=== PATIENT | male | born 1970 | race Caucasian/White ===

== ENCOUNTER 2022-01-06 20:49 | Emergency (ER) | payer BC, SELFPAY ==
[2022-01-06 20:57] VITALS: BP 134/88; PULSE 75; RESP 16; TEMP 36.8; O2SAT 95
[2022-01-06 21:37] VITALS: RESP 16; O2SAT 95
--- OUTSIDE RECORDS SUMMARY | 2022-01-06 22:05 | XMS_ITS | Clinical Summary ---
:1970 Author Organization [facility] Address [address] [place] [address] Care Team Providers Name Role Phone Unavailable Primary Care Provider Unavailable Source Comments Patient records contain information from all sites at [facility]. For routine questions regarding patient records, call [phone] during business hours, M-F 8:00 AM - 5:00 PM Central Time. Record requests for emergency care only can be directed to [phone] at any time.[facility] Social History Tobacco Use Types Packs/Day Years Used Date Smoking Tobacco: Never Assessed Sex Assigned at Date Recorded Not on file Plan of Treatment Health Maintenance Due Date Last Done Comments CT Colonography 1972 Cologuard 1972 Colonoscopy 1972 Colorectal Cancer Screening 1972 FIT 1972 Fasting Glucose for 1972 Diabetes Screening HIV Screening 1972 Hepatitis B Vaccines (1 of 1972 3 - 3-dose series) Hepatitis C Screening 1972 Lipid (Cholesterol) 1972 Screening COVID-19 Vaccine (#1) 1972 Depression Screening 02/18/2021 (Annual PHQ-2) Influenza Vaccine (#1) 2021 DTaP,Tdap,and Td Vaccines 06/13/2031 06/12/2021, 12/15/2010 , (5 - Td or Tdap) 07/04/1977, Additional history exists Pneumococcal vaccine (0-64 Aged Out No lo nger eligible years) based on patient 's age to complete this topic Insurance Payer Benefit Plan / Subscriber ID Effective Dates Phone Addre ss Type Group [place] [id number] 2021-Presen [phone] [address] PPO [facility] [address] [place] [address]
--- OUTSIDE RECORDS SUMMARY | 2022-01-06 22:05 | XMS_ITS | Encounter Summary ---
:1970 Author Organization [facility] Address [address] [place] [address] Care Team Providers Name Role Phone Unavailable Primary Care Provider Unavailable Reason for Visit Reason Comments COVID Inquiry Encounter Details Date Type Department Care Team Description 03/08/2021 Clinical Communication Central Appointment [facility] in [address] [id number] Social History Tobacco Use Types Packs/Day Years Used Date Smoking Tobacco: Never Assessed Sex Assigned at Date Recorded Not on file documented as of this encounter Miscellaneous Notes Telephone Encounter - Catrachita Rhoades R.N. - 03/08/2021 12:45 PM [facility] COVID-19 Nurse Line Screening ASSESSMENT Initial Screening Pathway Select appropriate pathway: : Adult In the last 48 hours, have you had a fever* OR symptoms that are unrelated to a preexisting illness?: No symptoms noted (Continue Screening) COVID Asymptomatic Screening Have you had close contact* with a person who has a LABORATORY CONFIRMED case of COVID-19 in the past 14 days?: Yes- quarantine required, provide instructions (Continue Screening) Have you tested positive for COVID-19 in the last 90 days?: No, asymptomatic COVID testing indicated(End Screening) Testing Recommendation Endpoint Is testing recommended? : Recommended to test Further Triage Needs Any further triage needs? : No further concerns noted. PLAN Endpoint recommendation: Asymptomatic testing indicated, advised to be swabbed for COVID-19 Only , sent to [facility] located at [address] [place] [address] ([facility]). An appointment is required for testing, please call [phone] Saturday-Saturday 7am to 6pm and Saturday & Saturday 9am to 4pm to schedule an appointment. Testing hours are 8am - 4:30pm daily. You can also schedule via your Patient Online Services account., Please avoid using public transportation per CDC recommendation. If you do not have personal transportation please self- quarantine until a personal transportation option is available. Standard Care Points -Get a COVID -19 vaccine as soon as you can if not fully vaccinated. -Wash hands frequently with soap and water, use hand resistor tester if soap and water aren't available. -Wear a mask over your nose and mouth to help protect yourself and others if not fully vaccinated and having no symptoms -Stay 6 feet between yourself and others who don't live with you. -Avoid crowds and poorly ventilated indoor spaces. -Seek emergent care if any of the following occur Trouble breathing Bluish lips or face Persistent pain or pressure in the chest New confusion or inability to rouse. -Notify your regular care provider of any new or worsening symptoms. Exposure Carepoints: If you are not fully vaccinated, quarantine for 14 days from your last known exposure to someone with a laboratory confirmed case of COVID-19 regardless of a negative test result unless otherwise directed. Education: Patient/caregiver able to teach back Patient agreeable to plan of care: Yes The following references were used: [facility] novel coronavirus (COVID- 19) resources CDC web site https://www.cdc.gov/coronavirus/2019-ncov/your-health/index.html Nursing judgement Telephone Encounter - Navarro Akins - 03/08/2021 12:39 PM CST What is the purpose of the call?: Requesting Testing Only Request Testing In the past 14 days are any of the following symptoms new to you and not related to an existing health condition?: No symptoms noted In the past 14 days have you had close contact* with a person who has a LABORATORY CONFIRMED case ofCOVID-19?: Yes exposure noted. [place] patient, instruct to quarantine, testing indicated (End Screening) Plan: Endpoint recommendation: Transferred to Nursing/COVID Line/Care Team *Reminder if sending patient for testing in [facility] or [facility], route encounter to the correct testing pool. documented in this encounter Plan of Treatment Not on filedocumented as of this encounter Visit Diagnoses Not on filedocumented in this encounter
--- OUTSIDE RECORDS SUMMARY | 2022-01-06 22:05 | XMS_ITS | Clinical Summary ---
:1970 Author Organization [facility] [place] [address] Care Team Providers Name Role Phone Cl Beasley MD Primary Care Provider [phone] Allergies No known active allergies Medications Medication Sig Dispensed Refills Start Date End Date Status escitalopram oxalate Take 1 tablet by 90 tablet 3 11/01/2017 Active (LEXAPRO) 10 mg mouth every tabletIndications: morning. Moderate single current episode of major depressive disorder (HC) ibuprofen (ADVIL; Take 1 tablet by 180 tablet 12 11/01/2017 Active MOTRIN) 600 mg mouth 3 times tabletIndications: daily with meals. Acute pain of left Maximum of 3200 knee mg in 24 hours. oxyCODONE (ROXICODONE) Take 1-2 tablets 15 tablet 0 12/14/2018 Active 5 mg immediate release by mouth every 6 tabletIndications: hours if needed Gingival abscess for Pain Active Problems Problem Noted Date Moderate single current episode of major depressive di sorder 11/25/2016 Tobacco abuse 12/17/2010 Immunizations Name Administration Dates Next Due Tdap 12/15/2010 Family History Medical History Relation Name Comments Diabetes Brother obesity Cancer-colon Mother Diabetes Mother Heart Disease Mother ND x 3 Hypertension Mother Stroke Mother Diabetes Sister obesity Relation Name Status Comments Brother Father Alive Mother Alive Sister Social History Tobacco Use Types Packs/Day Years Used Date Current Every Day Smoker Cigarettes 0.5 Smokeless Tobacco: Never Used Tobacco Cessation: Ready to Quit: Yes; C ounseling Given: Yes Alcohol Use Standard Drinks/Week Comments No 0 (1 standard drink = 0.6 oz pure alcoho l) Sex Assigned at Date Recorded Not on file Obstetrics History Last Filed Vital Signs Vital Sign Reading Time Taken Comments Blood Pressure 166/112 12/14/2018 2:09 PM CDT Pulse 85 12/14/2018 2:09 PM CDT Temperature 36.6 ??C (97.8 ??F) 12/14/2018 2:09 PM CDT Respiratory Rate 18 12/14/2018 2:09 PM CDT Oxygen Saturation 98% 12/14/2018 2:09 PM CDT Inhaled Oxygen Concentration - - Weight 118.8 kg (262 lb) 12/14/2018 2:09 PM CDT Height 201.9 cm (6' 7.5) 11/01/2017 3:15 PM CDT Body Mass Index 29.15 11/01/2017 3:15 PM CDT Plan of Treatment Health Maintenance Due Date Last Done Comments COVID-19 vaccine series (#1) 1972 HIV for age 15-65 06/23/1987 Hepatitis C screening for age 0506/22/1990 18-79 Colonoscopy through age 75 2017 Lipids for age 45-75 2017 BMI (ht and wt on same day) for 11/01/2018 11/01/2017, 11/20, age 18+ 11/15/2016, Additional history exists Depression screening for age 12+ 11/01/2018 11/01/2017, , 11/15/2016, Additional history exists Tetanus booster 12/15/2020 12/15/2010 Influenza for age 9-49 10/19/2021 Tdap Completed 12/15/2010 Results Not on filefrom Last 3 Months Insurance Payer Benefit Plan / Subscriber ID Effective Dates Phone Addre ss Type Group BLUE CROSS BLUE CROSS OF [id number] 2010-Present [address] [address] [place] [address] Care Teams Field Engineer Relationship Specialty Start Date End Date Cl Beasley MD PCP - General 07/08/061999 [place] [address]
--- OUTSIDE RECORDS SUMMARY | 2022-01-06 22:05 | XMS_ITS | Encounter Summary ---
:1970 Author Organization [facility] Address [address] [place] [address] Care Team Providers Name Role Phone Unavailable Primary Care Provider Unavailable Encounter Details Date Type Department Care Team Description 03/08/2021 Admin Visit Department of Family Medicine, [address] [address] [facility] [phone] Social History Tobacco Use Types Packs/Day Years Used Date Smoking Tobacco: Never Assessed Sex Assigned at Date Recorded Not on file documented as of this encounter Plan of Treatment Not on filedocumented as of this encounter Visit Diagnoses Not on filedocumented in this encounter Additional Health Concerns Infection Onset Date Last Indicated Resolved Time COVID19 Pending 03/08/2021 03/08/2021 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
--- NOTE | 2022-01-07 09:09 | ED.GENADULT ---
HPI - General Adult General Chief complaint: Unspecified Complaint, Adult Stated complaint: Left upper mouth swelling Time Seen by Provider: 01/06/22 21:38 History of Present Illness HPI narrative: 51 yo man here with so with c/o purulent drainage from left upper tooth and increasing swelling over his left face over the last 24 hours. lots of pain. Vision is not affected. fatigued. poor sleep. ibuprofen and aleeve no help. Has felt chilled. no measured fever. managed to get an appointment at the end of the month with his dentist. no known trauma. does smoke. Related Data Home Medications Medication Instructions Recorded Confirmed penicillin V potassium 500 mg 500 mg PO TID 01/08/22 01/08/22 tablet Previous Rx's Medication Instructions Recorded naproxen 500 mg tablet 500 mg PO BID #180 tabs 11/20/21 escitalopram oxalate 20 mg tablet 20 mg PO DAILY #30 tabs 01/08/22 oxycodone 5 mg tablet 5 mg PO Q8H PRN pain #20 tabs 01/08/22 zolpidem 10 mg tablet 10 mg PO QHS PRN sleep #30 tabs 01/08/22 Allergies Allergy/AdvReac Type Severity Reaction Status Date / Time acetaminophen Allergy Intermediate Nausea Verified 01/08/22 14:19 hydrocodone Allergy Intermediate Nausea Verified 01/08/22 14:20 Review of Systems Status of ROS: Reports: 6 or more systems reviewed and unremarkable except as noted in History and below [facility] Medical History (Updated 01/08/22 @ 14:47 by Cl Beasley MD) WINDY (generalized anxiety disorder) WINDY (generalized anxiety disorder) GERD (gastroesophageal reflux disease) Insomnia Social History Narrative: 1 daughter Smoker Smoking Status: Current every day smoker What tobacco products do you use: cigarettes Non-prescribed substance use: denies use Little interest or pleasure in doing things: several days Feeling down, depressed, or hopeless: several days Exam Narrative: Exam Narrative: tired and clearly uncomfortable. seems to have difficulty with decision making due to this combination. large man. breathing easily, no stridor. cardiovascular with rrr. significant swelling and mild erythema over majority of mid and upper left face. tender. not so much induration. eomi full and nt. neck supple without LA oropharynx with various eroded dentition. the one in question is at the upper anterior maxillary jaw --appears to involved tooth #12? adjacent teeth absent. mildy puffy gums and subtle pointing on buccal surface gums. draining very slightly from gingival surface. nowhere is there a discrete area of fluctuance. Const: Vital Signs, click to edit/add: Vital Signs - 24 hr 01/06/22 20:57 01/06/22 21:37 Temperature 98.2 F Pulse Rate [Right Pulse Oximeter] 75 Respiratory Rate 16 Respiratory Rate [ Left Teeth] 16 Blood Pressure [Ri ght Upper Arm] 134/88 Pulse Oximetry 95 Oxygen Delivery Me thod Room Air Course Vital Signs Vital signs: Initial Vital Signs Temperature 98.2 F 01/06/22 20:57 Temperature Source Temporal Artery Scan 01/06/22 20:57 Pulse Rate 75 01/06/22 20:57 Respiratory Rate 16 01/06/22 20:57 Blood Pressure 134/88 01/06/22 20:57 Blood Pressure Mean 103 01/06/22 20:57 Blood Pressure Position Sitting 01/06/22 20:57 Pulse Oximetry 95 01/06/22 20:57 Oxygen Delivery Method 01/06/22 20:57 Vital Signs Temperature 98.2 F 01/06/22 20:57 Pulse Rate 75 01/06/22 20:57 Respiratory Rate 16 01/06/22 20:57 Blood Pressure 134/88 01/06/22 20:57 Pulse Oximetry 95 01/06/22 20:57 Oxygen Delivery Method 01/06/22 20:57 Temperature 98.2 F 01/06/22 20:57 Pulse Rate 75 01/06/22 20:57 Respiratory Rate 16 01/06/22 21:37 Blood Pressure 134/88 01/06/22 20:57 Pulse Oximetry 95 01/06/22 20:57 Oxygen Delivery Method 01/06/22 20:57 Medical Decision Making MDM Narrative Medical decision making narrative: i don't appreciate cellulitis here or an abscess to drain; needs tooth pulled to expose. discussed options for care. interested in more immediate potential of pain relief. Injected with Marcaine which nearly fully resolved pain. Initially superior alveolar block and then a buccal block. Discharge Plan Discharge Clinical Impression: Dental decay, Pain, dental, Tooth abscess Patient Disposition: Home w/ Parent or Adult Condition: Improved Additional Instructions: Sorry you are feeling like this. Hopefully you get a little relief here shortly. Please make sure to make that appointment with your dentist after Thanksgiving. Return for persistent fever, worsening swelling tension redness heat, marked increase in pain. I would expect maybe symptoms to worsen a little bit over the next 12-24 hours as antibiotics begin to take hold. Can still take ibuprofen or naproxen combined with the medications prescribed today. Remember that the maximum dose for acetaminophen per dose is 1000 mg and in each tablet of Percocet there is 325 mg of acetaminophen. Prescriptions: No Action penicillin V potassium 500 mg tablet 500 mg PO TID zolpidem 10 mg tablet 10 mg PO QHS PRN (Reason: sleep) Qty: 30 0RF escitalopram oxalate 20 mg tablet 20 mg PO DAILY Qty: 30 5RF oxycodone 5 mg tablet 5 mg PO Q8H PRN (Reason: pain) Qty: 20 0RF naproxen 500 mg tablet 500 mg PO BID Qty: 180 0RF Stand Alone Forms: [employer] Info Instructions
== END 2022-01-06 22:09 | disposition home or self-care (01) ==
LOC: ED 22:04
PROVIDERS: Emergency Provider Family Medicine
DX: K02.9 Dental caries, unspecified (principal)
CPT/HCPCS: 64450; 99282; 99283; 99284

== ENCOUNTER 2022-10-21 15:12 | Observation (INO) | payer BC, SELFPAY ==
[2022-10-21] VITALS (29 sets, daily range): BP systolic 121–160; BP diastolic 75–105; PULSE 65–79; RESP 14–22; TEMP 36.6; O2SAT 90–96; BMI 29.3; BMI 29.9
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
[2022-10-21 15:40] LABS: Basophils Percent Auto 0.4 % (0.0-3.0); Eosinophils Percent Auto 1.1 % (0.0-7.0); Hematocrit 45.8 % (37.0-53.0); Hemoglobin* 15.3 gm/dL (13.5-17.5); Immature Granulocytes Pct Auto 0.4 %; Lymphocytes Percent Auto 22.4 % (20-44); Mean Corpuscular HGB Conc 33 gm/dL (32-36); Mean Corpuscular Hemoglobin 32 pg (26-34); Mean Corpuscular Volume 96 fL (80-100); Monocytes Percent Auto 8.2 % (0.0-11.0); Neutrophils Percent Auto 67.5 % (42.0-72.0); Platelet Count* 223 K/uL (140-440); RDW Coefficient of Variation % 12.5 % (11.5-15.5); Red Blood Count 4.78 m/uL (4.30-5.90); White Blood Count* 11.27 K/uL (4.50-11.00)
[2022-10-21 15:44] LABS: Slide Review Reflex No
[2022-10-21 15:46] LABS: Albumin* 4.4 g/dL (3.3-5.0); Chloride* 106 mmol/L (96-114); Sodium* 139 mmol/L (135-149)
[2022-10-21 15:47] LABS: Potassium* 3.9 mmol/L (3.6-5.1)
[2022-10-21 15:49] LABS: Alkaline Phosphatase* 72 U/L (40-150); Anion Gap 8 mEq/L (7-15); Aspartate Amino Transferase* 41 U/L (12-35); Bilirubin Direct* 0.2 mg/dL (0.0-0.5); Bilirubin Total* 0.6 mg/dL (0.1-1.5); Blood Urea Nitrogen* 18 mg/dL (7-30); Carbon Dioxide* 25 mmol/L (20-32); Creatinine* 0.8 mg/dL (0.5-1.5); Est. Creatinine Clearance* 146.41; Estimated Glomerular Filt Rate 108 ml/min; Total Protein* 7.4 g/dL (6.0-8.3)
[2022-10-21 15:50] LABS: Alanine Aminotransferase* 31 U/L (4-50); Calcium* 9.6 mg/dL (8.4-10.6); Glucose* 92 mg/dL (60-115)
--- NOTE | 2022-10-21 17:33 | ED.NURSE ---
up to br to void. is steady on feet. pain with movement.
[2022-10-21] MEDS: HYDROmorphone 0.5 mg/0.5 ml inj 1 MG IVP (17:58)
--- NOTE | 2022-10-21 18:24 | ED.NURSE ---
bed request sent and [facility] informed of admission.
--- NOTE | 2022-10-21 18:29 | ED.NURSE ---
is sitting on the bottom of the bed. denies pain after the dilaudid given . aware that he will be admitted for pain control and observation.
--- NOTE | 2022-10-21 18:35 | ED.NURSE ---
report was given to césar cody. will go to 258.
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
--- NOTE | 2022-10-21 22:28 | PC.NURSE ---
End of Shift: Patient pleasant and cooperative. Declined need for PRN pain medication. Tolerating regular diet with no nausea. O2 sats greater than 88% on room air.
[2022-10-21] MEDS: SODIUM CHLORIDE 0.9 % (FLUSH) 10 ML SYRINGE 5 ML IVF (23:47)
[2022-10-21] MEDS: CELECOXIB 200 MG CAPSULE PO (23:47)
[2022-10-22 03:20] VITALS: BP 132/81; PULSE 60; RESP 16; O2SAT 94
--- NOTE | 2022-10-22 05:52 | PC.NURSE ---
END OF SHIFT NOTE: PT CALM AND APPROPRIATE. A&Ox3. DENIES CP, SOB, N/V. C/O LEFT RIB PAIN FROM FRONT LATERAL CHEST TO MIDDLE BACK. PT RATES RIB PAIN 0/10 AT REST; 10/10 WITH MOVEMENT.?PT DECLINES PRN MEDICATION. AMBULATES INDEPENDENTLY WITHIN ROOM. VSS ON RA; AFEBRILE. CALL LIGHT WITHIN PT?S REACH.
[2022-10-22] MEDS: OMEPRAZOLE 20 MG CAPSULE DR PO (06:17)
[2022-10-22 07:00] VITALS: BP 145/95; PULSE 66; RESP 16; TEMP 36.4; O2SAT 91
[2022-10-22] MEDS: CELECOXIB 200 MG CAPSULE PO (09:07)
[2022-10-22] MEDS: SODIUM CHLORIDE 0.9 % (FLUSH) 10 ML SYRINGE 5 ML IVF (09:07)
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
== END 2022-10-22 11:20 | disposition home or self-care (01) ==
LOC: ED 15:59 → MEDSURG 18:55
PROVIDERS: Admitting Provider Family Medicine; Emergency Provider Family Medicine; PCP Family Medicine; Visit Provider Family Medicine
DX: S22.42XA Multiple fractures of ribs, left side, initial encounter for closed fracture (principal); V89.2XXA Person injured in unspecified motor-vehicle accident, traffic, initial encounter; K21.9 Gastro-esophageal reflux disease without esophagitis; Z72.0 Tobacco use; F41.1 Generalized anxiety disorder; Z90.89 Acquired absence of other organs
CPT/HCPCS: 36415; 70450; 71260; 72125; 72128; 72131; 80048; 80076; 85025; 93005; 94761; 96374; 99284; 99285; 99291; A9270; G0378; J1170; Q9967

== ENCOUNTER 2023-02-27 12:31 | Outpatient (CLI) | payer BC, SELFPAY ==
--- OUTSIDE RECORDS SUMMARY | 2023-02-27 12:33 | XMS_ITS | Clinical Summary ---
Author Name Unknown Organization [facility] Address [place], [place] [address] Care Team Providers Care School Janitor Name Role Phone Cl Beasley MD Primary Care Provider + Allergies No known active allergies Medications Medication Sig Dispensed Refills Start Date End Date Status escitalopram oxalate (LEXAPRO) 10 mg tabletIndications:Mo derate single current episode of major depressive disorder (HC) Take 1 tablet by mouth every morning. 90 tablet 3 11/01/2017 Active ibuprofen (ADVIL; MOTRIN) 600 mg tabletIndications:Ac michele pain of left knee Take 1 tablet by mouth 3 times daily with meals. Maximum of 3200 mg in 24 hours. 180 tablet 12 11/01/2017 Active oxyCODONE (ROXICODONE) 5 mg immediate release tabletIndications:Gi ngival abscess Take 1-2 tablets by mouth every 6 hours if needed for Pain 15 tablet 0 12/14/2018 Active Active Problems Problem Noted Date Diagnosed Date Moderate single current epis ode of major depressive disorder 11/25/2016 Tobacco abuse 12/17/2010 Immunizations Name Administration Dates Next Due Tdap 12/15/2010 Family History Medical History Relation Name Comments Diabetes Brother obesity Cancer-colon Mother Diabetes Mother Heart Disease Mother [place] x 3 Hypertension Mother Stroke Mother Diabetes Sister obesity Relation Name Status Comments Brother Father Alive Mother Alive Sister Social History Tobacco Use Types Packs/Day Years Used Date Smoking Tobacco: Every Day Cigarettes Smokeless Tobacco: Never Tobacco Cessation:Ready to Q uit: Yes; Counseling Given: Yes Alcohol Use Standard Drinks/Week Comments No 0 (1 standard drink = 0.6 oz pur e alcohol) PHQ-2 Answer Date Recorded PHQ-2 Score 6 04/19/2018 Sex and Gender Information Value Date Recorded Sex Assigned at Not on file Gender Identity Not on file Sexual Orientation Not on file Obstetrics History Last Filed Vital Signs Vital Sign Reading Time Taken Comments Blood Pressure 166/112 12/14/2018 2:09 PM CDT Pulse 85 12/14/2018 2:09 PM CDT Temperature 36.6 ??C (97.8 ??F) 12/14/2018 2:09 PM CD T Respiratory Rate 18 12/14/2018 2:09 PM CDT [...] 15-65 06/23/1987 Hepatitis C screening for age 18-79 1990 Colonoscopy through age 75 2017 Lipids for age 45-75 2017 BMI (ht and wt on same day) for age 18+ 11/01/2018 11/01/2017, 12/17/2016, 11/15/2016, Additional history exists Depression screening for age 12+ 11/01/2018 11/01/2017, 12/17/2016, 11/15/2016, Additional history exists Tetanus booster 12/15/2020 12/15/2010 Zoster (shingles) series for age 50+ (1 of 2) 2022 Influenza for age 50-64 10/19/2022 Tdap Completed 12/15/2010 Pneumococcal series for age 6-64 Aged Out No longer eligible based on patient's age to complete this topic Care Teams School Janitor Relationship Specialty Start Date End Date Cl Beasley MD [address] [place] [address] [facility] - General 07/08/06
--- OUTSIDE RECORDS SUMMARY | 2023-02-27 12:33 | XMS_ITS ---
Author Name Unknown Organization [facility] Address [address] [place] [address] Care Team Providers Care Pond Sawyer Name Role Phone Unavailable Unavailable Unavailable Surgery Details Not on file Complications Check Surgery Details section. Procedure Estimated Blood Loss Check Surgery Details section. Procedure Findings Check Surgery Details section. Procedure Specimens Taken Check Surgery Details section.
--- OUTSIDE RECORDS SUMMARY | 2023-02-27 12:33 | XMS_ITS | Clinical Summary ---
Author Name Unknown Organization [facility] Address [address] [place] [address] Care Team Providers Care Rn Gynecology Name Role Phone Unavailable Primary Care Provider Unavailabl e Source Comments Patient records contain information from all sites at [facility]. For routine questions regarding patient records, call [phone] during business hours, M-F 8:00 AM - 5:00 PM Central Time. Record requests for emergency care only can be directed to [phone] at any time.[facility] Social History Tobacco Use Types Packs/Day Years Used Date Smoking Tobacco: Never Assessed Nutrition Answer Date Recorded Nutrition: EVOO Fat Source Unknown 03/08 Nutrition: Servings of Fruits/Vegetables per Day Not on file 03/08/2021 Dental Answer Date Recorded Dental: Regular Dentist Unknown 03/08/19 22 Sex and Gender Information Value Date Recorded Sex Assigned at Not on file Gender Identity Not on file Sexual Orientation Not on file Plan of Treatment Health Maintenance Due Date Last Done Comments CT Colonography 1972 Cologuard 1972 Colonoscopy 1972 Colorectal Cancer Screening 1972 FIT 1972 Fasting Glucose for Diabetes Screening 1972 HIV Screening 1972 Hepatitis B Vaccines (1 of 3 - 3-dose series) 1972 Hepatitis C Screening 1972 Lipid (Cholesterol) Screening 1972 COVID-19 Vaccine (#1) 1972 Zoster Vaccines (1 of 2) 2022 Influenza Vaccine (#1) 2022 01/08/2022 Depression Screening (Annual PHQ-2) 02/18/2023 DTaP,Tdap,and Td Vaccines (5 - Td or Tdap) 06/13/2031 06/12/2021, 12/15/2010, 07/04/1977, Additional history exists Pneumococcal vaccine (0-64 years) Aged Out No longer eligible based on patient's age to complete this topic [address] [place] [id number]
--- OUTSIDE RECORDS SUMMARY | 2023-02-27 12:33 | XMS_ITS | Referral Summary ---
Author Name Unknown Organization [facility] Address [address] [place] [address] Care Team Providers Care Flight Mechanic Name Role Phone Unavailable Primary Care Provider Unavailabl e Source Comments Patient records contain information from all sites at [facility]. For routine questions regarding patient records, call [phone] during business hours, M-F 8:00 AM - 5:00 PM Central Time. Record requests for emergency care only can be directed to [phone] at any time.[facility] Social History Tobacco Use Types Packs/Day Years Used Date Smoking Tobacco: Never Assessed Nutrition Answer Date Recorded Nutrition: EVOO Fat Source Unknown 03/08 Nutrition: Servings of Fruits/Vegetables per Day Not on file 03/08/2021 Dental Answer Date Recorded Dental: Regular Dentist Unknown 03/08/19 Sex and Gender Information Value Date Recorded Sex Assigned at Not on file Gender Identity Not on file Sexual Orientation Not on file Plan of Treatment Not on file [address] [place] [id number]
== END 2023-02-27 12:32 | disposition home or self-care (01) ==
PROVIDERS: PCP Family Medicine; Visit Provider Family Medicine
DX: Z13.6 Encounter for screening for cardiovascular disorders (principal); Z12.5 Encounter for screening for malignant neoplasm of prostate
CPT/HCPCS: 80061; G0103

== ENCOUNTER 2023-10-22 13:28 | Outpatient (CLI) | payer BC, SELFPAY ==
--- OUTSIDE RECORDS SUMMARY | 2023-10-22 13:31 | XMS_ITS | Clinical Summary ---
Author Organization [facility] Address [place], [place] [address] Care Team Providers Care Design Editor Name Role Phone Cl Beasley MD Primary Care Provider + Allergies No known active allergies Medications Medication Sig Dispensed Refills Start Date End Date Status escitalopram oxalate (LEXAPRO) 10 mg tabletIndications:Mo derate single current episode of major depressive disorder (HC) Take 1 tablet by mouth every morning. 90 tablet 3 11/01/2017 Active ibuprofen (ADVIL; MOTRIN) 600 mg tabletIndications:Ac [place] pain of left knee Take 1 tablet by mouth 3 times daily with meals. Maximum of 3200 mg in 24 hours. 180 tablet 12 11/01/2017 Active oxyCODONE (ROXICODONE) 5 mg immediate release tabletIndications:Gi ngival abscess Take 1-2 tablets by mouth every 6 hours if needed for Pain 15 tablet 12/14/2018 Active Active Problems Problem Noted Date Diagnosed Date Moderate single current epis ode of major depressive disorder 11/25/2016 Tobacco abuse 12/17/2010 Immunizations Name Administration Dates Next Due Tdap 12/15/2010 Family History Medical History Relation Name Comments Diabetes Brother obesity Cancer-colon Mother Diabetes Mother Heart Disease Mother [place] x 3 Hypertension Mother Stroke Mother Diabetes [...] Health Maintenance Due Date Last Done Comments HIV for age 15-65 06/23/1987 Hepatitis C [...] for age 50+ (1 of 2) 2022 COVID-19 vaccine series (2022-24 season) 2023 Influenza for age 50-64 10/20/2023 Tdap Completed 12/15/2010 Pneumococcal series for age 6-64 Aged Out No longer eligible based on patient's age to complete this topic Care Teams Design Editor Relationship Specialty Start Date End Date Cl Beasley MD [address] [place] [address] [facility] - General 07/08/06
--- NOTE | 2023-10-22 13:45 | CRLHL7_ITS ---
For Patients: As a result of the Century Cures Act, medical imaging exams and procedure reports are released immediately into your electronic medical record. You may view this report before your referring provider. If you have questions, please contact your health care provider. CLINICAL INDICATION: Right knee pain. Osteoarthritis. COMPARISON STUDIES: Radiographs from 10/08/2023. TECHNICAL: Noncontrast MRI of the right knee. 1.5 milan MRI scanner. Axial, sagittal and coronal T1, PD, PD FS and T2 FS images. FINDINGS: MEDIAL COMPARTMENT: Medial Meniscus: Complex tearing of the posterior horn and posterior aspect of the body of the medial meniscus. Meniscal tearing is noted on coronal STIR images number 23 through 27 of series 5. There is associated moderate medial extrusion of the medial meniscal body which indicates loss of meniscal hoop stress. Articular Cartilage: Marginal osteophyte formation. There is high-grade medial femoral condyle and medial tibial plateau articular cartilage wear with small areas of subchondral bone marrow edema (grade 3 and 4 cartilage wear). LATERAL COMPARTMENT: Lateral Meniscus: Intact. Articular Cartilage: Subchondral bone marrow edema underlying the medial aspect lateral tibial plateau and likely indicates overlying grade 4 cartilage abnormality. Mild lateral femoral condyle articular cartilage wear (grade 1/2). PATELLOFEMORAL COMPARTMENT: Articular Cartilage: Full-thickness grade 4 cartilage abnormality involving the medial patellar facet and patellar apex with subchondral marrow changes. Moderate to high-grade chondromalacia within the trochlea (grade 2/3). LIGAMENTS: Anterior Cruciate Ligament: Intact. Posterior Cruciate Ligament: Intact. MEDIAL COLLATERAL LIGAMENT AND POSTEROMEDIAL CORNER COMPLEX: Medial Collateral Ligament: Chronic thickening of the proximal MCL. Medial Head of the Gastrocnemius and Semimembranosus Tendons: Normal. LATERAL COLLATERAL LIGAMENT COMPLEX AND POSTEROLATERAL CORNER COMPLEX: Fibular Collateral Ligament: Normal. Distal Biceps Femoris Tendon Complex: Normal. Iliotibial Band: Normal. Popliteus Tendon: Normal. Posterolateral Corner Capsule: Normal. EXTENSOR MECHANISM: Distal Quadriceps Tendon: Normal. Patellar Tendon: Normal. Medial Patellar Retinaculum and Medial Patellofemoral Ligament: Normal. Lateral Patellar Retinaculum: Normal. Normal patellar alignment. No patella aden. Normal trochlear depth. Normal lateral trochlear inclination. JOINT SPACE AND CAPSULE: Moderate joint effusion with mild synovitis. 5 millimeter ossified body adjacent to the anterior horn root attachment of the medial meniscus as noted on axial T1 image number 22 of series 4. BONES AND SOFT TISSUES: No acute fracture or avascular necrosis.No significant popliteal cyst.Anterior subcutaneous edema. IMPRESSION: 1. Medial meniscal tear, right knee. 2. Tricompartmental high-grade chondromalacia. This includes high-grade partial and full-thickness cartilage wear within the medial compartment with areas of subchondral bone marrow edema. 3. Moderate joint effusion with mild synovitis. 5 mm ossified body adjacent to the anterior horn root attachment of the medial meniscus. 4. No fracture or acute ligamentous abnormality. Dictated by Lawrence Augustine MD @ 10/23/2023 9:35:06 AM (Electronically Signed)
== END 2023-10-22 13:29 | disposition home or self-care (01) ==
LOC: MRI 13:29
PROVIDERS: PCP Family Medicine; Visit Provider Family Medicine
DX: M25.561 Pain in right knee (principal); S83.241A Other tear of medial meniscus, current injury, right knee, initial encounter; M94.261 Chondromalacia, right knee; M25.461 Effusion, right knee; M17.11 Unilateral primary osteoarthritis, right knee
CPT/HCPCS: 73721

== ENCOUNTER 2024-12-07 09:36 | Emergency (ER) | payer BC, SELFPAY ==
[2024-12-07 09:38] VITALS: BP 146/92; PULSE 88; RESP 18; TEMP 36.6; O2SAT 97; BMI 29.9
--- OUTSIDE RECORDS SUMMARY | 2024-12-07 09:38 | XMS_ITS | Clinical Summary ---
Author Organization [facility] Address [address] [place] [id number] Care Team Providers Care Capacity Analyst Name Role Phone Cl Beasley MD Primary Care Provider + Allergies No known active allergies Medications escitalopram oxalate (LEXAPRO) 10 mg tabletIndicatio ns:Moderate single current episode of major depressive disorder (HC) Take 1 tablet by mouth every morning. 90 tablet 3 11/01/2017 Active ibuprofen (ADVIL; MOTRIN) 600 mg tabletIndicatio ns:Acute pain of left knee Take 1 tablet by mouth 3 times daily with meals. Maximum of 3200 mg in 24 hours. 180 tablet 12 11/01/2017 Active oxyCODONE (ROXICODONE) 5 mg immediate release tabletIndicatio ns:Gingival abscess Take 1-2 tablets by mouth every 6 hours if needed for Pain 15 tablet 12/14/2018 Active Active Problems Problem Noted Date Diagnosed Date Moderate single current epis ode of major depressive disorder 11/25/2016 Tobacco abuse 12/17/2010 Immunizations Immunization Administration Dates Next Due Tdap 12/15/2010 Family History Medical History Relation Name Comments Diabetes Brother obesity Cancer-colon Mother Diabetes Mother Heart Disease Mother [place] x 3 Hypertension Mother Stroke Mother Diabetes [...] Recorded Sex Assigned at Not on file Legal Sex Male 5:23 AM [employer] Gender Identity Not on file Sexual Orientation Not on file Obstetrics History Last Filed Vital Signs Vital Sign Reading Time Taken Comments Blood Pressure 166/112 12/14/2018 2:09 PM CDT Pulse 85 12/14/2018 2:09 PM CDT Temperature 36.6 C (97.8 F) 12/14/2018 2:09 PM CDT Respiratory Rate 18 [...] age 15-65 06/23/1987 Hepatitis C screening for ag e 18-79 1990 Hepatitis B series for 19+ ( 1 of 3 - 19+ 3-dose series) 06/23/1991 Colonoscopy through age 75 2017 Lipids for age 45-75 2017 BMI (ht and wt on same day) for age 18+ 11/01/2018 11/01/2017, 12/17/2016, 11/15/2016, Additional history exists Depression screening for age 12+ 11/01/2018 11/01/2017, 12/17/2016, 11/15/2016, Additional history exists Tetanus booster 12/15/2020 12/15/2010 Pneumococcal series for age 50+ (1 of 1 - PCV) 2022 Zoster (shingles) series for age 50+ (1 of 2) 2022 COVID-19 vaccine series ( - 2023- season) 2024 Influenza Vaccine (#1) 2024 RSV vaccine for adults or (1 - 1-dose 75+ series) 06/23/[id number] [place] [id number] [employer] [place] Care Teams Capacity Analyst Relationship Specialty Start Date End Date Cl Beasley MD [address] [place] [address] PCP - General 07/08/06
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
== END 2024-12-07 11:04 | disposition home or self-care (01) ==
LOC: ED 10:57
PROVIDERS: Emergency Provider Student in an Organized Health Care Education/Training Program; PCP Family Medicine
DX: S05.02XA Injury of conjunctiva and corneal abrasion without foreign body, left eye, initial encounter (principal)
CPT/HCPCS: 76512; 99283; A9270